=== PATIENT | female | born 1945 | race Caucasian/White ===

== ENCOUNTER 2020-09-23 12:29 | Emergency (ER) | payer MEDICARE, OTHER ==
[~2020-09-23 12:29] MED LIST: ACETAMINOPHEN-1 EAC1 PO; ATIVAN0.5 MG PO; CARAFATE1 GM PO; DITROPAN5 MG PO; KLOR-CON M 1010 MEQ PO; LIPITOR20 M1 PO; LOTREL 5-40 MG1 EACH PO; MOBIC15 MG PO; NEURONTIN300 MG PO; OMEPRAZOLE40 MG PO; ZOLOFT100 MG PO
[2020-09-23 13:14] LABS: BILIRUBIN 2+ mg/dL (NEGATIVE); BLOOD NEGATIVE Ery/uL (NEGATIVE); CLARITY CLEAR (CLEAR); COLOR YELLOW (YELLOW); GLUCOSE (U) NORMAL (NORMAL); LEUKOCYTES TRACE Leu/uL (NEGATIVE); NITRITE NEGATIVE (NEGATIVE); PROTEIN TRACE (LOW) mg/dL (NEGATIVE); pH 6.5 (5.0-9.0)
[2020-09-23 13:33] LABS: BACTERIA 1+
[2020-09-23 13:54] LABS: EOSINOPHIL 3.2 % (0-7); HCT 43.8 % (37.0-47.0); HGB 15.3 g/dl (12.5-16.0); LYMPHOCYTE 27.1 % (15-48); MCH 29.4 pg (25.0-31.0); MCHC 34.9 g/dL (32.0-36.0); MCV 84.2 fL (78.0-100.0); MONOCYTE 14.2 % (0-12); MPV 12.8 fL (6.0-9.5); NEUTROPHIL 54.3 % (41-80); NRBC 0; PLT 145 K/uL (150-400); RDW 12.3 % (11.5-14.0); WBC 8.8 K/uL (4.0-10.5)
[2020-09-23 14:19] LABS: INR 1.15 (0.9-1.2); PTT 26.5 SECONDS (22.2-34.7)
[2020-09-23 14:34] LABS: ALBUMIN 3.5 g/dL (3.4-5.0); BILIRUBIN - TOTAL 1.8 mg/dL (0.2-1.0); BUN/CREAT RATIO (CALC) 9.2 RATIO; C-REACTIVE PROTEIN 0.2 mg/dL (<=0.90); CREATININE 0.76 mg/dL (0.51-0.95); GLOBULIN (CALCULATION) 2.5 g/dL; POTASSIUM 2.7 mmol/L (3.5-5.1)
[2020-09-23 14:50] LABS: LACTIC ACID 2.7 mmol/L (0.4-1.9)
[2020-09-23] MEDS ORDERED: IMODIUM2 MG PO (16:57)
== END 2020-09-23 17:31 | disposition home or self-care (01) ==
LOC: FER 12:29
PROVIDERS: Emergency Medicine
DX: R19.7 Diarrhea, unspecified (principal); E87.6 Hypokalemia; R10.9 Unspecified abdominal pain; I10 Essential (primary) hypertension; E11.9 Type 2 diabetes mellitus without complications; Z90.49 Acquired absence of other specified parts of digestive tract; Z88.7 Allergy status to serum and vaccine; Z85.41 Personal history of malignant neoplasm of cervix uteri; Z20.822 Contact with and (suspected) exposure to COVID-19
CPT/HCPCS: 36415; 80053; 81001; 83605; 84145; 84443; 85025; 85610; 85730; 86140; 93005; Q9967; U0002

== ENCOUNTER 2021-11-09 20:28 | Inpatient (IN) | payer MEDICARE, OTHER ==
[~2021-11-09] VITALS: Ht 165.1 cm; Wt 67.4 kg
[~2021-11-09 20:28] MED LIST changes: +IMODIUM2 MG PO
[2021-11-09 21:25] LABS: BASOPHIL 0.6 % (0-2); EOSINOPHIL 0 % (0-7); HCT 38.7 % (37.0-47.0); HGB 13.8 g/dl (12.5-16.0); LYMPHOCYTE 13.3 % (15-48); MCHC 35.7 g/dL (32.0-36.0); MCV 84.1 fL (78.0-100.0); MONOCYTE 10.2 % (0-12); MPV 10.2 fL (6.0-9.5); NEUTROPHIL 75.1 % (41-80); NRBC 0; PLT 137 K/uL (150-400); RDW 13.2 % (11.5-14.0); WBC 7.1 K/uL (4.0-10.5)
[2021-11-09 21:32] LABS: INR 1.34 (0.9-1.2); PROTHROMBIN TIME 15.9 SECONDS (11.8-13.4)
[2021-11-09 21:48] LABS: LACTIC ACID 2.1 mmol/L (0.4-1.9)
[2021-11-09 21:50] LABS: ALBUMIN 2.5 g/dL (3.4-5.0); BILIRUBIN - TOTAL 0.5 mg/dL (0.2-1.0); BUN/CREAT RATIO (CALC) 18.8 RATIO; CREATININE 0.48 mg/dL (0.51-0.95); GLOBULIN (CALCULATION) 3.7 g/dL; POTASSIUM 2.9 mmol/L (3.5-5.1); TOTAL PROTEIN 6.2 g/dL (6.4-8.2)
[2021-11-09 21:58] LABS: CORONAVIRUS 2019 SARS-COV-2 NEGATIVE (NEGATIVE); INFLUENZA A NAA NEGATIVE (NEGATIVE)
[2021-11-09 23:59] LABS: AMORPHOUS URATES CRYSTALS TRACE; BILIRUBIN NEGATIVE (NEGATIVE); BLOOD NEGATIVE Ery/uL (NEGATIVE); CLARITY CLEAR (CLEAR); COLOR YELLOW (YELLOW); GLUCOSE (U) NORMAL (NORMAL); LEUKOCYTES NEGATIVE Leu/uL (NEGATIVE); NITRITE NEGATIVE (NEGATIVE); PROTEIN NEGATIVE (NEGATIVE); SPECIFIC GRAVITY 1.015 (1.001-1.030); SQUAMOUS EPITHELIAL CELLS RARE; UROBILINOGEN 0.2 mg/dL (0.2-1.0)
--- NOTE | 2021-11-10 05:19 | NUR ---
PATIENT NOT ABLE TO VERBALIZE CURRENT MEDICATION, STATES [facility] [place]. PLAN REPORT TO ON COMING SHIFT TO CONTACT [facility] FOR CURRENT MEDICATION LIST. PATIENT STATED SHE DID NOT TAKE HER MEDICATIONS PRESCRIBED AND HAS NOT TAKEN ANY MEDICATION IN OVER 48 HOURS.
[2021-11-10 07:22] LABS: BASOPHIL 0.8 % (0-2); EOSINOPHIL 0.3 % (0-7); HCT 34.8 % (37.0-47.0); HGB 11.9 g/dl (12.5-16.0); LYMPHOCYTE 26.8 % (15-48); MCH 29.4 pg (25.0-31.0); MCHC 34.2 g/dL (32.0-36.0); MCV 85.9 fL (78.0-100.0); MPV 10.4 fL (6.0-9.5); NEUTROPHIL 50.8 % (41-80); NRBC 0; PLT 112 K/uL (150-400); RBC 4.05 M/uL (4.20-5.40); RDW 13.5 % (11.5-14.0)
[2021-11-10 07:25] LABS: MONOCYTE 20.1 % (0-12)
[2021-11-10 08:01] LABS: ALBUMIN 2.2 g/dL (3.4-5.0); BILIRUBIN - TOTAL 0.5 mg/dL (0.2-1.0); BUN/CREAT RATIO (CALC) 14.3 RATIO; CREATININE 0.56 mg/dL (0.51-0.95); GLOBULIN (CALCULATION) 3.3 g/dL; POTASSIUM 2.8 mmol/L (3.5-5.1); TOTAL PROTEIN 5.5 g/dL (6.4-8.2)
[2021-11-10] MEDS ORDERED: ZITHROMYCIN PO (09:19)
[2021-11-10] MEDS ORDERED: PROTONIX 40MG T40 MG PO (09:20)
[2021-11-10] MEDS ORDERED: COLESTID1 GM PO (09:20)
[2021-11-10] MEDS ORDERED: METFORMIN HCL500 M2 PO (09:20)
[2021-11-10] MEDS ORDERED: K-TAB ER20 MEQ PO (09:21)
[2021-11-11 07:11] LABS: EOSINOPHIL 1.9 % (0-7); HGB 11.1 g/dl (12.5-16.0); LYMPHOCYTE 30.9 % (15-48); MCH 29.3 pg (25.0-31.0); MCHC 33.6 g/dL (32.0-36.0); MCV 87.1 fL (78.0-100.0); MONOCYTE 15.4 % (0-12); MPV 11.4 fL (6.0-9.5); NEUTROPHIL 50.3 % (41-80); NRBC 0; PLT 113 K/uL (150-400); RBC 3.79 M/uL (4.20-5.40); RDW 13.9 % (11.5-14.0); WBC 5.9 K/uL (4.0-10.5)
[2021-11-11 07:37] LABS: CREATININE 0.5 mg/dL (0.51-0.95); POTASSIUM 4.2 mmol/L (3.5-5.1)
[2021-11-12] MEDS ORDERED: AZITHROMYCIN250 MG PO (08:40)
[2021-11-12] MEDS ORDERED: CEFDINIR300 MG PO (08:40)
[2021-11-12] MEDS ORDERED: SENNA-DOCUSATE1 EACH PO (09:51)
--- NOTE | 2021-11-12 10:34 | NUR ---
11/12/21 A referral was made to [facility] for nursing and PT. A report was given to MS DOREEN Bartlett.
--- NOTE | 2021-11-12 16:33 | NUR ---
11/12/21 Ms. Jarvis requested EMS for transport home. Her [id number] was called while in the room with Ms. Jarvis. It was explained that insurance does not pay to transport home. The [id number] reports that Mr. Jarvis is now going to [facility] and they would like Ms. Jarvis to go as well. The admission criteria was explained re: the reason Ms. Jarvis would not meet skilled criteria. Ms. Jarvis does not wish to pay privately and chose to sign the ABN for EMS transport home.
== END 2021-11-12 15:48 | disposition home health service (06) | DRG 871 ==
LOC: FER 20:28 → FMS 11-10 01:16
PROVIDERS: Allergy & Immunology Allergy; Nurse Practitioner; Physician Assistant; ADMIT Internal Medicine
DX: A41.9 Sepsis, unspecified organism (principal); J18.9 Pneumonia, unspecified organism; G93.41 Metabolic encephalopathy; E87.1 Hypo-osmolality and hyponatremia; K56.41 Fecal impaction; Z20.822 Contact with and (suspected) exposure to COVID-19; I10 Essential (primary) hypertension; E78.5 Hyperlipidemia, unspecified; J43.9 Emphysema, unspecified; K21.9 Gastro-esophageal reflux disease without esophagitis; E11.9 Type 2 diabetes mellitus without complications; M19.90 Unspecified osteoarthritis, unspecified site; J45.909 Unspecified asthma, uncomplicated; F41.9 Anxiety disorder, unspecified; F32.A Depression, unspecified; I25.2 Old myocardial infarction; Z28.310 Unvaccinated for COVID-19; Z85.42 Personal history of malignant neoplasm of other parts of uterus; Z90.49 Acquired absence of other specified parts of digestive tract; Z90.710 Acquired absence of both cervix and uterus; Z98.49 Cataract extraction status, unspecified eye; Z88.7 Allergy status to serum and vaccine; Z99.3 Dependence on wheelchair
CPT/HCPCS: 36415; 70450; 71045; 71250; 80048; 80053; 81001; 82140; 82962; 83605; 84145; 84443; 84484; 85025; 85610; 87040; 93005; 97162; J0456; J0692; J0696; J1650; J3475; J3480; J7030; J7050; U0002